=== PATIENT | female | born 1940 | race Caucasian/White ===

== ENCOUNTER 2018-10-13 15:53 | Day surgery (SDC) | payer MEDICARE ==
[2018-10-13] VITALS (9 sets, daily range): BP systolic 95–145; BP diastolic 54–86
[~2018-10-13] VITALS: Ht 180.3 cm; Wt 88.0 kg
[2018-10-13] MEDS ORDERED: MIDAZolam 5mg/ml 2ml vial IV ONE (16:10)
[2018-10-13] MEDS ORDERED: normal saline 1000ml 1,000 ML IV SCH (16:10)
[2018-10-13] MEDS ORDERED: fentaNYL/PF 50MCG/1 ML 2ML syringe IV ONE (16:10)
[2018-10-13] MEDS ORDERED: BISO5TAB PO (16:19)
[2018-10-13] MEDS ORDERED: HYDR12.55 PO (16:21)
[2018-10-13] MEDS ORDERED: LISI-600 PO (16:21)
[2018-10-13] MEDS ORDERED: LISI-604 PO (16:23)
[2018-10-13] MEDS ORDERED: FLEC100T2 PO (16:24)
[2018-10-13] MEDS ORDERED: ATOR80TA PO (16:25)
[2018-10-13] MEDS ORDERED: ALLO100T PO (16:29)
[2018-10-13] MEDS ORDERED: APIX5TAB3 PO (16:30)
[2018-10-13] MEDS ORDERED: ALBU8HFA PO (16:35)
[2018-10-13] MEDS ORDERED: MULT-1085 PO (16:36)
[2018-10-13] MEDS ORDERED: MAGN400C PO (16:37)
[2018-10-13 16:54] LABS: BASOPHILS % (AUTO) 0.4 % (0-1); EOSINOPHILS # (AUTO) 0.2 X10'3 (0-0.9); EOSINOPHILS % (AUTO) 2.3 % (0-6); HEMATOCRIT 45.9 % (35.0-45.0); LYMPHOCYTES # (AUTO) 2.1 X10'3 (1.1-4.8); LYMPHOCYTES % (AUTO) 27.4 % (21-51); MEAN CORPUSCULAR HGB CONC 32.6 % (33.0-36.5); MEAN CORPUSCULAR VOLUME 94.9 FL (78-98); MEAN PLATELET VOLUME 8.3 FL (7.4-10.4); MONOCYTES # (AUTO) 0.6 X10'3 (0-0.9); MONOCYTES % (AUTO) 7.7 % (2-12); NEUTROPHILS # (AUTO) 4.8 X10'3 (1.8-7.7); NEUTROPHILS % (AUTO) 62.2 % (42-75); PLATELET COUNT 249 X10'3 (140-440); RED BLOOD COUNT 4.84 X10'6 (4.20-5.60); RED CELL DISTRIBUTION WIDTH 14.1 % (11.5-14.5); WHITE BLOOD COUNT 7.7 X10'3 (4.5-11.0)
[2018-10-13 17:11] LABS: ALBUMIN 4.2 G/DL (3.4-5.0); ANION GAP 11 (8-16); BLOOD UREA NITROGEN 30 MG/DL (7-18); BUN/CREATININE RATIO 17.6 (6.6-38.0); CALCIUM 9.7 MG/DL (8.5-10.1); CHLORIDE 103 MMOL/L (99-107); GLUCOSE 104 MG/DL (70-104); POTASSIUM 4.7 MMOL/L (3.5-5.1); SODIUM 142 MMOL/L (135-145); eGFR 29 ML/MIN
[2018-10-13 17:12] LABS: INR 1.1 INR; PROTHROMBIN TIME 10.9 SECONDS (9.0-12.0)
== END 2018-10-13 18:50 | disposition home or self-care (01) ==
LOC: SSTAY O 15:53
PROVIDERS: ATTEND Internal Medicine Cardiovascular Disease
DX: I48.0 Paroxysmal atrial fibrillation (principal); I10 Essential (primary) hypertension; M10.9 Gout, unspecified; E78.00 Pure hypercholesterolemia, unspecified; J45.998 Other asthma; K21.9 Gastro-esophageal reflux disease without esophagitis; Z91.041 Radiographic dye allergy status; Z79.01 Long term (current) use of anticoagulants; Z87.891 Personal history of nicotine dependence; Z72.89 Other problems related to lifestyle; Z79.899 Other long term (current) drug therapy; Z98.890 Other specified postprocedural states; Z82.49 Family history of ischemic heart disease and other diseases of the circulatory system; Z80.3 Family history of malignant neoplasm of breast
CPT/HCPCS: 36415; 80048; 83735; 85025; 85610; 92960; 93005; J2250; J3010; J7030

== ENCOUNTER 2019-06-01 07:26 | Day surgery (SDC) | payer MEDICARE ==
[~2019-06-01] VITALS: Ht 180.3 cm; Wt 84.1 kg
[2019-06-01] VITALS (13 sets, daily range): BP systolic 78–124; BP diastolic 49–75
[~2019-06-01 07:26] MED LIST: ALBU8HFA PO; ALLO100T PO; APIX5TAB3 PO; ATOR80TA PO; BISO5TAB PO; CA C1TAB95 PO; COLC0.6T69 PO; CYAN500T63 PO; DIPH25CA83 PO; DOCU-148 PO; ESOM40CA49 PO; ESZO2TAB22 PO; FISH1CAP15 PO; HYDR12.55 PO; LISI-600 PO; MAGN400C PO; MULT-1085 PO; RYT225T PO; UBID100C16 PO
[2019-06-01] MEDS ORDERED: MAGN400T6 PO (08:03)
[2019-06-01] MEDS ORDERED: LISI10TA4 PO (08:03)
[2019-06-01] MEDS ORDERED: atropine 1 MG/1 ML vial IV ONE (08:10)
[2019-06-01] MEDS ORDERED: MIDAZolam 5mg/ml 2ml vial IV ONE (08:10)
[2019-06-01] MEDS ORDERED: fentaNYL/PF 50MCG/1 ML 2ML syringe IV ONE (08:10)
[2019-06-01] MEDS ORDERED: normal saline 1,000 ML IV SCH (08:10)
[2019-06-01 08:11] LABS: BASOPHILS # (AUTO) 0.1 X10'3 (0-0.2); BASOPHILS % (AUTO) 0.8 % (0-1); EOSINOPHILS # (AUTO) 0.2 X10'3 (0-0.9); EOSINOPHILS % (AUTO) 3.1 % (0-6); HEMATOCRIT 44.8 % (42.0-52.0); HEMOGLOBIN 15.3 g/dl (14.0-17.9); LYMPHOCYTES # (AUTO) 1.9 X10'3 (1.1-4.8); LYMPHOCYTES % (AUTO) 28.9 % (21-51); MEAN CORPUSCULAR HEMOGLOBIN 32.4 PG (27.0-31.0); MEAN CORPUSCULAR HGB CONC 34.3 g/dL (33.0-36.5); MEAN CORPUSCULAR VOLUME 94.7 FL (78-98); MEAN PLATELET VOLUME 7.7 FL (7.4-10.4); MONOCYTES # (AUTO) 0.6 X10'3 (0-0.9); MONOCYTES % (AUTO) 8.9 % (2-12); NEUTROPHILS # (AUTO) 3.8 X10'3 (1.8-7.7); NEUTROPHILS % (AUTO) 58.3 % (42-75); PLATELET COUNT 208 X10'3 (140-440); RED BLOOD COUNT 4.73 X10'6 (4.70-6.10); RED CELL DISTRIBUTION WIDTH 13.6 % (11.5-14.5); WHITE BLOOD COUNT 6.5 X10'3 (4.5-11.0)
[2019-06-01 08:22] LABS: ANION GAP 5 (8-16); BLOOD UREA NITROGEN 23 MG/DL (7-18); BUN/CREATININE RATIO 15.5 (5.4-32.0); CALCIUM 9.4 MG/DL (8.5-10.1); CHLORIDE 104 MMOL/L (99-107); CREATININE 1.48 MG/DL (0.60-1.10); GLUCOSE 106 MG/DL (70-104); MAGNESIUM 1.9 MG/DL (1.5-2.4); POTASSIUM 4.1 MMOL/L (3.5-5.1); SODIUM 140 MMOL/L (135-145); TOTAL CARBON DIOXIDE 30.6 MMOL/L (24-32); eGFR 46 ML/MIN
[2019-06-01] MEDS ORDERED: atropine 0.1mg/ml 10ml syringe IV ONE (08:30)
== END 2019-06-01 09:45 | disposition home or self-care (01) ==
LOC: SSTAY O 07:26
PROVIDERS: ATTEND Internal Medicine Cardiovascular Disease
DX: I48.4 Atypical atrial flutter (principal); I48.0 Paroxysmal atrial fibrillation; I10 Essential (primary) hypertension; M10.9 Gout, unspecified; F17.210 Nicotine dependence, cigarettes, uncomplicated; Z85.46 Personal history of malignant neoplasm of prostate; Z98.890 Other specified postprocedural states; Z91.041 Radiographic dye allergy status; Z95.1 Presence of aortocoronary bypass graft; Z98.1 Arthrodesis status; Z79.899 Other long term (current) drug therapy; Z72.89 Other problems related to lifestyle
CPT/HCPCS: 36415; 80048; 83735; 85025; 85610; 92960; 93005; 94760; J2250; J3010; J7030

== ENCOUNTER 2020-11-28 09:10 | Day surgery (SDC) | payer MEDICARE ==
[2020-11-25 15:40] LABS: BASOPHILS # (AUTO) 0.1 X10'3 (0-0.2); BASOPHILS % (AUTO) 0.6 % (0-1); EOSINOPHILS # (AUTO) 0.2 X10'3 (0-0.9); LYMPHOCYTES # (AUTO) 2.5 X10'3 (1.1-4.8); MONOCYTES # (AUTO) 0.8 X10'3 (0-0.9); PRE OP HEMOGLOBIN 15.3 g/dL (14.0-17.9)
[2020-11-25 15:42] LABS: EOSINOPHILS % (AUTO) 2.2 % (0-6); MEAN CORPUSCULAR HEMOGLOBIN 31.3 PG (27.0-31.0); MEAN CORPUSCULAR HGB CONC 33.2 g/dL (33.0-36.5); MEAN CORPUSCULAR VOLUME 94.1 FL (78-98); MEAN PLATELET VOLUME 7.8 FL (7.4-10.4); MONOCYTES % (AUTO) 9.2 % (2-12); NEUTROPHILS # (AUTO) 5.1 X10'3 (1.8-7.7); PRE OP HEMATOCRIT 46.1 % (42.0-52.0); PRE OP PLATELET COUNT 224 X10'3 (140-440); RED CELL DISTRIBUTION WIDTH 13.6 % (11.5-14.5)
[2020-11-25 15:59] LABS: ALBUMIN 4.2 G/DL (3.4-5.0); ALBUMIN/GLOBULIN RATIO 1.2 (1.1-1.5); ALKALINE PHOSPHATASE 99 IU/L (46-116); BLOOD UREA NITROGEN 16 MG/DL (7-18); BUN/CREATININE RATIO 12.6 (5.4-32.0); CALCIUM 9.7 MG/DL (8.5-10.1); CHLORIDE 103 MMOL/L (99-107); CREATININE 1.27 MG/DL (0.60-1.10); PRE OP ALT 30 U/L (30-65); PRE OP ANION GAP 8 (8-16); PRE OP AST 16 U/L (10-37); PRE OP BILIRUB, TOTAL 0.6 MG/DL (0.0-1.0); PRE OP GLUCOSE 94 MG/DL (70-104); PRE OP POTASSIUM 4.5 MMOL/L (3.4-5.1); PRE OP SODIUM 142 MMOL/L (135-145); TOTAL CARBON DIOXIDE 30.8 MMOL/L (24-32); TOTAL PROTEIN 7.6 G/DL (6.4-8.2); eGFR 55 ML/MIN
[2020-11-25 17:00] LABS: BANDS% (MANUAL) 2 % (0-10); EOSINOPHILS % (MANUAL) 3 % (0-6); LYMPHOCYTES % (MANUAL) 24 % (21-51); MONOCYTES % (MANUAL) 10 % (2-12); NEUTROPHILS % (MANUAL) 54 % (42-75); PLATELET ESTIMATE NORMAL; REACTIVE LYMPHOCYTES % 7 % (0-0); TOTAL CELLS COUNTED 100
[2020-11-25 17:04] LABS: ELLIPTOCYTES 1+; SMUDGE CELLS 1+
[~2020-11-28] VITALS: Ht 177.8 cm; Wt 87.3 kg
[~2020-11-28 09:10] MED LIST changes: +BUPIVAcaine/PF 2.5mg/ml (0.25%) 10ml vial ONE; +CHOL400T57 PO; -COLC0.6T69 PO; -CYAN500T63 PO; +CYAN500T71 PO; -DIPH25CA83 PO; +DOCUMENT DATE & TIME OF BETA-BLOCKER PO ONE; +DOFE250C PO; -ESZO2TAB22 PO; -HYDR12.55 PO; +LIDOcaine 1% 30ml preserv. free vial ONE; -LISI-600 PO; +LISI10TA4 PO; -MAGN400C PO; +MAGN400T28 PO; -RYT225T PO; +ceFAZolin 2gm in dextrose, iso 50 ML IV ONE; +famotidine 20mg tablet PO ONE; +ringers solution, lacted 1,000 ML IV SCH
[2020-11-28] MEDS ORDERED: fentaNYL/PF 50MCG/1 ML 2ML syringe ONE (10:09)
[2020-11-28] MEDS ORDERED: MIDAZolam 5mg/5ml vial ONE (10:09)
[2020-11-28 10:20] VITALS: BP 149/72
[2020-11-28 10:27] VITALS: BP 149/72
[2020-11-28 11:20] VITALS: BP 131/70
--- NOTE | 2020-11-28 11:20 | NUR ---
Received from OR via , accompanied by Anesthesiologist DR OWENS and report given by Anesthesiolgist.AWAKENS TO VOICE. VITALS STABLE. AUGUST PAIN. MOVES FINGERS.
[2020-11-28 11:30] VITALS: BP 119/69
[2020-11-28 11:40] VITALS: BP 109/58
[2020-11-28] MEDS ORDERED: ketorolac trometh. 30mg/ml inj. ONE (11:44)
[2020-11-28 11:50] VITALS: BP 105/76
--- NOTE | 2020-11-28 12:10 | NUR ---
AWAKE AND ORIENTED. VITALS STABLE. FIXATION DEVICE IN PLACE WITH NO BLEEDING NOTED. AUGUST PAIN. HOME WITH HIS AT THIS TIME.
== END 2020-11-28 12:10 | disposition home or self-care (01) ==
LOC: PAS 09:10
PROVIDERS: ATTEND Orthopaedic Surgery Hand Surgery
DX: S62.623A Displaced fracture of middle phalanx of left middle finger, initial encounter for closed fracture (principal); Z20.822 Contact with and (suspected) exposure to COVID-19; J45.909 Unspecified asthma, uncomplicated; E78.5 Hyperlipidemia, unspecified; K21.9 Gastro-esophageal reflux disease without esophagitis; I48.20 Chronic atrial fibrillation, unspecified; I10 Essential (primary) hypertension; Z87.891 Personal history of nicotine dependence; Z72.89 Other problems related to lifestyle; Z79.899 Other long term (current) drug therapy; Z79.01 Long term (current) use of anticoagulants; Z91.041 Radiographic dye allergy status; Z98.890 Other specified postprocedural states; Z90.79 Acquired absence of other genital organ(s); Z85.46 Personal history of malignant neoplasm of prostate; X58.XXXA Exposure to other specified factors, initial encounter; Y93.89 Activity, other specified; Y92.89 Other specified places as the place of occurrence of the external cause; Y99.8 Other external cause status
CPT/HCPCS: 20692; 26727; 36415; 80053; 82948; 85025; 87635; C1713; J1885; J2001; J2250; J3010; J3490; 85007; A4215; A4615; A7000; J7120

== ENCOUNTER 2025-08-09 07:45 | Day surgery (SDC) | payer MEDICARE ==
[2025-08-09] VITALS (7 sets, daily range): BP systolic 84–134; BP diastolic 52–72; PULSE 37–51; RESP 16–22; TEMP 98.9; O2SAT 93–98
[~2025-08-09] VITALS: Ht 170.2 cm; Wt 81.8 kg
[~2025-08-09 07:45] MED LIST changes: +ATOR-429 PO; -ATOR80TA PO; -BUPIVAcaine/PF 2.5mg/ml (0.25%) 10ml vial ONE; -DOCUMENT DATE & TIME OF BETA-BLOCKER PO ONE; -DOFE250C PO; -LIDOcaine 1% 30ml preserv. free vial ONE; +LISI10TA27 PO; -LISI10TA4 PO; -MAGN400T28 PO; +MAGN400T56 PO; +[UNRECOGNIZED DRUG - CODE] PO; -ceFAZolin 2gm in dextrose, iso 50 ML IV ONE; -famotidine 20mg tablet PO ONE; -ringers solution, lacted 1,000 ML IV SCH
--- NOTE | 2025-08-09 08:20 | ELECTROCARDIOGRAPH REPORT ---
[facility] Test Date: 2025-08-09 Test Time: 08:17:22 Pat Name: JOSE LUIS ALONSO Department: [facility] Patient ID: [facility]-[id number] Room: Gender: M [employer] Foam Worker: TIFFANY : 1940 Requested By: ALEXEI GONZALEZ Order Number: [id number] Reading MD: Dr. ELLIE Whaley Measurements Intervals [place] Rate: 48 P: 0 NC: 0 QRS: 27 QRSD: 101 T: 33 QT: 640 QTc: 572 Interpretive Statements Atrial fibrillation Ventricular bigeminy Nonspecific repol abnormality, inferior leads Prolonged QT interval Electronically Signed On 08-10-2025 19:12:[address] ELLIE Whaley Please click the below link to view image of tracing.
[2025-08-09] MEDS ORDERED: PANT40TA54 PO (08:26)
[2025-08-09] MEDS ORDERED: FURO20TA4 PO (08:29)
[2025-08-09] MEDS ORDERED: vitamin d3 (08:32)
[2025-08-09] MEDS ORDERED: ESZO2TAB31 PO (08:35)
[2025-08-09 08:44] LABS: MEAN PLATELET VOLUME 8.4 FL (7.4-10.4); RED CELL DISTRIBUTION WIDTH 15.2 % (11.5-14.5)
[2025-08-09 08:50] LABS: CREATININE 1.41 MG/DL (0.60-1.10); TOTAL CARBON DIOXIDE 29.3 MMOL/L (24-32); eGFR 48 ML/MIN
[2025-08-09 08:53] LABS: INR 1.1 INR
[2025-08-09] MEDS ORDERED: fentaNYL/PF 50MCG/1 ML 2ML syringe ONE (08:58)
[2025-08-09] MEDS ORDERED: midazolam 1 mg/ML 2ml injection ONE ×2 (08:58→09:45)
[2025-08-09] MEDS ORDERED: MIDAZolam 1mg/ml 10ml vial IV ONE (09:10)
[2025-08-09] MEDS ORDERED: normal saline 1000ml 1,000 ML IV SCH (09:10)
[2025-08-09] MEDS ORDERED: fentaNYL/PF 50MCG/1 ML 2ML syringe IV ONE (09:10)
[2025-08-09 09:11] LABS: MYOGLOBIN 66.0 ng/ml (16-96)
--- NOTE | 2025-08-09 10:10 | ELECTROCARDIOGRAPH REPORT ---
[facility] Test Date: 2025-08-09 Test Time: 10:07:16 Pat Name: JOSE LUIS ALONSO Department: [facility] Patient ID: [facility]-[id number] Room: Gender: M Customer Advisor: TIFFANY : 1940 Requested By: ALEXEI GONZALEZ Order Number: [id number] Reading MD: Dr. ELLIE Whaley Measurements Intervals [place] Rate: 36 P: 23 GA: 222 QRS: 44 QRSD: 104 T: 11 QT: 682 QTc: 528 Interpretive Statements Sinus bradycardia Atrial premature complex Borderline prolonged GA interval Minimal ST depression, anterolateral leads Prolonged QT interval Electronically Signed On 08-10-2025 19:12:[address] ELLIE Whaley Please click the below link to view image of tracing.
--- NOTE | 2025-08-10 06:01 | CARDIOLOGY REPORT ---
DATE OF SERVICE: 08/09/2025 DICTATING PHYSICIAN: ANDREY GONZALEZ DO REFERRING PHYSICIAN: Andrey Gonzalez DO PROCEDURE: DC cardioversion. PREPROCEDURAL DIAGNOSIS: Type 2 atrial flutter. POSTPROCEDURAL DIAGNOSIS: Type 2 atrial flutter, cardioverted to sinus rhythm. DESCRIPTION OF PROCEDURE: The patient was sedated with fentanyl and Versed. He was then given one 150 joules synchronized shock resulting in reversion to sinus rhythm. COMPLICATIONS: There were no complications. PLAN: Ongoing medical therapy. FINAL DIAGNOSES: Type 2 atrial flutter, cardioverted to sinus rhythm. ANDREY GONZALEZ DO TID: [id number] RECEIPT: [id number] TONE/RUY
== END 2025-08-09 11:30 | disposition home or self-care (01) ==
LOC: SSTAY O 07:45
PROVIDERS: ATTEND Internal Medicine Cardiovascular Disease
DX: I48.4 Atypical atrial flutter (principal); I49.1 Atrial premature depolarization; I48.0 Paroxysmal atrial fibrillation; I10 Essential (primary) hypertension; E78.00 Pure hypercholesterolemia, unspecified; I48.19 Other persistent atrial fibrillation; M10.9 Gout, unspecified; G47.00 Insomnia, unspecified; Z87.891 Personal history of nicotine dependence; Z79.01 Long term (current) use of anticoagulants; Z79.899 Other long term (current) drug therapy; Z90.89 Acquired absence of other organs; Z98.890 Other specified postprocedural states; Z91.041 Radiographic dye allergy status
CPT/HCPCS: 36415; 80048; 83874; 85025; 85610; 92960; 93005; J2250; J3010; J7030; J7120; 99152; 99153